=== PATIENT | male | born 1950 | race Caucasian/White ===

== ENCOUNTER 2017-08-29 16:25 | Inpatient (IN) ==
[2017-08-29 17:26] LABS: Basophils % 0.3 % (0.0-0.8); Eosinophils # 0.1 10*3/uL (0.0-0.87); Eosinophils % 1.3 % (0.00-10.9); Hematocrit 44.3 VOL% (42.0-52.0); Hemoglobin 15.6 GM/DL (14.0-18.0); Immature Granulocytes % 0.3 %; Immature Granulocytes Absolute 0.03 #; Lymphocytes # 2.4 10*3/uL (1.4-4.0); Mean Corpuscular HGB Conc 35.2 GM/DL (32-36); Mean Corpuscular Hemoglobin 32 PG (27-34); Mean Corpuscular Volume 91.3 FL (87-102); Mean Platelet Volume 10.4 FL (9.6-12.0); Monocytes # 0.9 10*3/uL (0.11-0.8); Monocytes % 8.5 % (1.7-12.7); Neutrophils # 7.5 10*3/uL (1.4-7.4); Neutrophils % 67.6 % (38.7-73.9); Platelet Count 228 T/CUMM (130-400); Red Blood Count 4.85 MC/CUMM (3.8-5.5); Red Cell Distribution Width 12.4 % (9.3-17.3); White Blood Count 11.1 T/CUMM (4-12)
[2017-08-29 17:37] LABS: INR 1.1; PT Patient Result 11.1 SECS
[2017-08-29 18:00] LABS: Partial Thromboplastin Time < 21.0 SECS (0-40)
[2017-08-29] MEDS ORDERED: MORPHINE 4 MG/1 ML VIAL IV PRN (18:34)
[2017-08-29] MEDS ORDERED: ONDANSETRON 4 MG/2 ML VIAL IV PRN (18:34)
[2017-08-29] MEDS ORDERED: ACETAMINOPHEN 325 MG TABLET PO PRN (18:34)
[2017-08-29] MEDS: PIPERACILLIN/TAZOBACTAM 3,375 MG in SODIUM CHLORIDE 0.9% 100 ML IV SCH (19:15)
[2017-08-29] MEDS: LACTATED RINGERS 1,000 ML IV SCH (19:15)
[2017-08-29 19:31] LABS: Albumin 3.7 G/DL (3.4-5.0); Calcium 8.3 MG/DL (8.5-10.1); Osmolality,Calculated 276.5 MOS/KG (273-304); Potassium 3.6 MMOL/L (3.5-5.1); Total Protein 6.6 G/DL (6.4-8.3)
[2017-08-30] MEDS: PIPERACILLIN/TAZOBACTAM 3,375 MG in SODIUM CHLORIDE 0.9% 100 ML IV SCH ×3 (02:43→17:20)
[2017-08-30] MEDS: LACTATED RINGERS 1,000 ML IV SCH ×3 (02:45→17:20)
[2017-08-30 07:36] LABS: Basophils % 0.3 % (0.0-0.8); Eosinophils # 0.2 10*3/uL (0.0-0.87); Eosinophils % 2.6 % (0.00-10.9); Hematocrit 41.1 VOL% (42.0-52.0); Hemoglobin 14.7 GM/DL (14.0-18.0); Immature Granulocytes % 0.4 %; Immature Granulocytes Absolute 0.03 #; Lymphocytes # 1.7 10*3/uL (1.4-4.0); Lymphocytes % 24.3 % (21.2-54.2); Mean Corpuscular HGB Conc 35.8 GM/DL (32-36); Mean Corpuscular Hemoglobin 33 PG (27-34); Mean Corpuscular Volume 90.9 FL (87-102); Mean Platelet Volume 10.1 FL (9.6-12.0); Monocytes # 0.5 10*3/uL (0.11-0.8); Monocytes % 7.7 % (1.7-12.7); Neutrophils # 4.6 10*3/uL (1.4-7.4); Neutrophils % 64.7 % (38.7-73.9); Platelet Count 203 T/CUMM (130-400); Red Blood Count 4.52 MC/CUMM (3.8-5.5); Red Cell Distribution Width 12.4 % (9.3-17.3)
[2017-08-30 08:02] LABS: Calcium 8.4 MG/DL (8.5-10.1); Osmolality,Calculated 281.3 MOS/KG (273-304); Potassium 3.8 MMOL/L (3.5-5.1)
[2017-08-30] MEDS: ENOXAPARIN 40 MG/0.4 ML SYRINGE SUBCUT SCH (09:25)
[2017-08-30] MEDS: PANTOPRAZOLE 40 MG TABLET PO SCH (09:25)
[2017-08-31] MEDS: PIPERACILLIN/TAZOBACTAM 3,375 MG in SODIUM CHLORIDE 0.9% 100 ML IV SCH ×3 (02:38→18:04)
[2017-08-31 04:11] LABS: Calcium 8.3 MG/DL (8.5-10.1); Osmolality,Calculated 279.3 MOS/KG (273-304); Potassium 3.2 MMOL/L (3.5-5.1)
[2017-08-31] MEDS: LACTATED RINGERS 1,000 ML IV SCH ×2 (07:02→09:49)
[2017-08-31] MEDS: ENOXAPARIN 40 MG/0.4 ML SYRINGE SUBCUT SCH (09:12)
[2017-08-31] MEDS: PANTOPRAZOLE 40 MG TABLET PO SCH (09:12)
[2017-08-31] MEDS: OLMESARTAN 20 MG TABLET PO SCH (12:01)
[2017-09-01] MEDS: PIPERACILLIN/TAZOBACTAM 3,375 MG in SODIUM CHLORIDE 0.9% 100 ML IV SCH ×3 (03:02→19:25)
[2017-09-01] MEDS: LACTATED RINGERS 1,000 ML IV SCH ×2 (03:04→21:40)
[2017-09-01] MEDS: PANTOPRAZOLE 40 MG TABLET PO SCH (09:19)
[2017-09-01] MEDS: ENOXAPARIN 40 MG/0.4 ML SYRINGE SUBCUT SCH (09:19)
[2017-09-01] MEDS: OLMESARTAN 20 MG TABLET PO SCH (09:19)
[2017-09-02] MEDS: PIPERACILLIN/TAZOBACTAM 3,375 MG in SODIUM CHLORIDE 0.9% 100 ML IV SCH ×2 (02:53→09:35)
[2017-09-02] MEDS ORDERED: BISACODYL 10 MG SUPP RECTAL ONE (07:42)
[2017-09-02] MEDS: OLMESARTAN 20 MG TABLET PO SCH (08:18)
[2017-09-02] MEDS: PANTOPRAZOLE 40 MG TABLET PO SCH (08:18)
[2017-09-02] MEDS: ENOXAPARIN 40 MG/0.4 ML SYRINGE SUBCUT SCH (08:18)
[2017-09-02 11:10] VITALS: BP 161/100
== END 2017-09-02 12:45 | disposition home or self-care (01) | DRG 390 ==
LOC: N.ED 16:25 → N.EDINP 17:22 → N.3E 18:15
PROVIDERS: ADMIT Surgery; ATTEND Surgery

== ENCOUNTER 2019-07-21 18:18 | Inpatient (IN) ==
[2019-07-21 19:09] LABS: Basophils % 0.2 % (0.0-0.8); Eosinophils % 0.3 % (0.00-10.9); Hematocrit 50.9 VOL% (42.0-52.0); Hemoglobin 17.5 GM/DL (14.0-18.0); Immature Granulocytes % 0.4 %; Immature Granulocytes Absolute 0.06 #; Lymphocytes # 2.1 10*3/uL (1.4-4.0); Lymphocytes % 14.2 % (21.2-54.2); Mean Corpuscular HGB Conc 34.4 GM/DL (32-36); Mean Corpuscular Volume 92.9 FL (87-102); Mean Platelet Volume 9.9 FL (9.6-12.0); Monocytes % 6.1 % (1.7-12.7); Neutrophils % 78.8 % (38.7-73.9); Platelet Count 283 T/CUMM (130-400); Red Blood Count 5.48 MC/CUMM (3.8-5.5); Red Cell Distribution Width 12.9 % (9.3-17.3); White Blood Count 14.5 T/CUMM (4-12)
[2019-07-21 19:25] LABS: Alanine Aminotransferase 32 U/L (16-61); Albumin 4.1 G/DL (3.4-5.0); Alkaline Phosphatase 90 U/L (45-117); Aspartate Amino Transferase 18 U/L (0-37); Blood Urea Nitrogen 18 MG/DL (7-18); Calcium 9.5 MG/DL (8.5-10.1); Estimated Glom Filtration Rate 62 ML/MIN; Glucose 149 MG/DL (74-106); Osmolality,Calculated 272.2 MOS/KG (273-304); Total Protein 8.3 G/DL (6.4-8.3); Troponin I < 0.015 NG/ML (0.00-0.045)
[2019-07-21] MEDS ORDERED: HYDROmorphone 2 MG/1 ML VIAL IV STA (20:00)
[2019-07-21] MEDS ORDERED: SODIUM CHLORIDE 0.9% 500 ML IV STA (20:00)
[2019-07-21] MEDS ORDERED: PANTOPRAZOLE 40 MG VIAL IV STA (20:00)
[2019-07-21] MEDS ORDERED: ONDANSETRON 4 MG/2 ML VIAL IV STA (20:00)
[2019-07-21 21:04] LABS: Apearance,Urine Slightly Hazy (Clear); Bacteria,Urine Occasional /HPF (Few); Bilirubin,Urine Negative (Negative); Blood, Urine Negative (Negative); Glucose,Urine (UA) Negative (Negative); Hyaline Casts,Urine 4 /LPF (0-3); Ketones,Urine Negative (Negative); Mucus,Urine Moderate /LPF (Occasional); Nitrite,Urine Negative (Negative); Protein,Urine 100 MG/DL; RBC,Urine 4 /HPF (0-4); Squamous Epithelial Cell,Urine Occasional /HPF (0-10); Urine Color Amber (Yellow); Urine Urobilinogen < 2.0 EU/DL (0.2-1.0); WBC,Urine 4 /HPF (0-6)
[2019-07-21] MEDS ORDERED: ACETAMINOPHEN 325 MG TABLET PO PRN (22:29)
[2019-07-21] MEDS: SODIUM CHLORIDE 0.9% 1,000 ML IV SCH (23:15)
[2019-07-22] MEDS: HYDROmorphone 2 MG/1 ML VIAL IV PRN ×4 (01:26→18:34)
[2019-07-22] MEDS: ONDANSETRON 4 MG/2 ML VIAL IV PRN (01:32)
[2019-07-22 05:44] LABS: Basophils % 0.1 % (0.0-0.8); Eosinophils % 0.1 % (0.00-10.9); Hematocrit 46.4 VOL% (42.0-52.0); Hemoglobin 16.2 GM/DL (14.0-18.0); Immature Granulocytes % 0.5 %; Immature Granulocytes Absolute 0.08 #; Lymphocytes # 1.7 10*3/uL (1.4-4.0); Lymphocytes % 11.9 % (21.2-54.2); Mean Corpuscular HGB Conc 34.9 GM/DL (32-36); Mean Corpuscular Volume 93.2 FL (87-102); Mean Platelet Volume 10.2 FL (9.6-12.0); Monocytes % 5.5 % (1.7-12.7); Neutrophils % 81.9 % (38.7-73.9); Platelet Count 238 T/CUMM (130-400); Red Blood Count 4.98 MC/CUMM (3.8-5.5); Red Cell Distribution Width 13.2 % (9.3-17.3); White Blood Count 14.6 T/CUMM (4-12)
[2019-07-22 06:19] LABS: Albumin 3.7 G/DL (3.4-5.0); Bilirubin,Total 0.9 MG/DL (0.2-1.0); Calcium 8.6 MG/DL (8.5-10.1); Osmolality,Calculated 282.4 MOS/KG (273-304); Total Protein 7.3 G/DL (6.4-8.3)
[2019-07-22] MEDS: PANTOPRAZOLE 40 MG VIAL IV SCH (08:05)
[2019-07-22] MEDS: SODIUM CHLORIDE 0.9% 1,000 ML IV SCH ×3 (08:05→21:47)
[2019-07-22] MEDS: OLMESARTAN 20 MG TABLET PO SCH (08:05)
[2019-07-22] MEDS ORDERED: cefOXitin 2,000 MG in SYRINGE 1 EACH IV ONE (09:29)
[2019-07-22] MEDS ORDERED: propofoL 200 MG/20 ML VIAL IV ONE (12:10)
[2019-07-22] MEDS ORDERED: ONDANSETRON 4 MG/2 ML VIAL ONE (12:11)
[2019-07-22] MEDS ORDERED: fentaNYL 100 MCG/2 ML VIAL ONE ×2 (12:11)
[2019-07-22] MEDS ORDERED: DEXAMETHASONE 4 MG/1 ML VIAL ONE (12:11)
[2019-07-22] MEDS ORDERED: SEVOFLURANE 1 UNIT/15 MINUTE INH ONE (12:11)
[2019-07-22] MEDS ORDERED: LIDOCAINE 2% 5 ML VIAL ONE (12:11)
[2019-07-22] MEDS ORDERED: SUCCINYLCHOLINE 200 MG/10 ML VIAL ONE (12:12)
[2019-07-22] MEDS ORDERED: PHENYLEPHRINE 1 MG/10 ML SYRINGE IV ONE (12:12)
[2019-07-22] MEDS ORDERED: ROCURONIUM 100 MG/10 ML VIAL IV ONE (12:12)
[2019-07-22 12:25] LABS: Amorphous Crystals,Urine Many /HPF (Few); Apearance,Urine CLOUDY (Clear); Bilirubin,Urine Negative (Negative); Blood, Urine Negative (Negative); Glucose,Urine (UA) Negative (Negative); Ketones,Urine Negative (Negative); Mucus,Urine Occasional /LPF (Occasional); Nitrite,Urine Negative (Negative); Protein,Urine Negative; Urine Color Yellow (Yellow); Urine Specific Gravity 1.042 (1.001-1.035); Urine Urobilinogen < 2.0 EU/DL (0.2-1.0)
[2019-07-22] MEDS ORDERED: KETOROLAC 15 MG/1 ML VIAL IV PRN (12:30)
[2019-07-22] MEDS ORDERED: HYDROmorphone 2 MG/1 ML VIAL IV PRN (12:30)
[2019-07-22] MEDS ORDERED: ALBUTEROL/IPRATROPIUM 3 ML NEB RESP TX PRN (12:30)
[2019-07-22] MEDS ORDERED: HYDROmorphone 2 MG/1 ML VIAL ONE (12:35)
[2019-07-22] MEDS: cefOXitin 2,000 MG in SYRINGE 1 EACH IV SCH ×2 (16:54→21:47)
[2019-07-23] MEDS: HYDROmorphone 2 MG/1 ML VIAL IV PRN ×3 (00:57→07:23)
[2019-07-23] MEDS: cefOXitin 2,000 MG in SYRINGE 1 EACH IV SCH (05:08)
[2019-07-23 05:17] LABS: Basophils % 0.2 % (0.0-0.8); Hematocrit 42.6 VOL% (42.0-52.0); Hemoglobin 14.3 GM/DL (14.0-18.0); Immature Granulocytes % 0.5 %; Immature Granulocytes Absolute 0.07 #; Lymphocytes # 1.6 10*3/uL (1.4-4.0); Lymphocytes % 12.3 % (21.2-54.2); Mean Corpuscular HGB Conc 33.6 GM/DL (32-36); Mean Corpuscular Volume 96.2 FL (87-102); Mean Platelet Volume 10.1 FL (9.6-12.0); Monocytes % 8.9 % (1.7-12.7); Neutrophils % 78.1 % (38.7-73.9); Platelet Count 207 T/CUMM (130-400); Red Blood Count 4.43 MC/CUMM (3.8-5.5); Red Cell Distribution Width 13.3 % (9.3-17.3)
[2019-07-23 05:56] LABS: Albumin 3.1 G/DL (3.4-5.0); Bilirubin,Total 0.8 MG/DL (0.2-1.0); Total Protein 6.3 G/DL (6.4-8.3)
[2019-07-23] MEDS: SODIUM CHLORIDE 0.9% 1,000 ML IV SCH ×2 (06:05→15:20)
[2019-07-23] MEDS ORDERED: SUGAMMADEX 200 MG/2 ML VIAL IV ONE (06:33)
[2019-07-23] MEDS: OLMESARTAN 20 MG TABLET PO SCH (09:39)
[2019-07-23] MEDS: PANTOPRAZOLE 40 MG VIAL IV SCH (09:39)
[2019-07-24] MEDS: SODIUM CHLORIDE 0.9% 1,000 ML IV SCH ×4 (01:48→12:01)
[2019-07-24] MEDS: PANTOPRAZOLE 40 MG VIAL IV SCH (08:49)
[2019-07-24] MEDS: OLMESARTAN 20 MG TABLET PO SCH (08:49)
[2019-07-24] MEDS: HYDROmorphone 2 MG/1 ML VIAL IV PRN (22:04)
[2019-07-25] MEDS: SODIUM CHLORIDE 0.9% 1,000 ML IV SCH ×3 (00:20→13:55)
[2019-07-25] MEDS ORDERED: hydrALAZINE 20 MG/1 ML VIAL IV ONE (07:18)
[2019-07-25] MEDS ORDERED: PROMETHAZINE 25 MG/1 ML VIAL IM ONE (07:48)
[2019-07-25] MEDS: PANTOPRAZOLE 40 MG VIAL IV SCH (09:44)
[2019-07-25] MEDS: OLMESARTAN 20 MG TABLET PO SCH (09:45)
[2019-07-25] MEDS ORDERED: hydrALAZINE 20 MG/1 ML VIAL IV PRN (09:53)
[2019-07-25] MEDS: ONDANSETRON 4 MG/2 ML VIAL IV PRN ×2 (12:30→20:50)
[2019-07-25] MEDS: ENALAPRIL 2.5 MG/2 ML VIAL IV SCH ×2 (12:35→18:10)
[2019-07-25] MEDS: hydrALAZINE 20 MG/1 ML VIAL IV PRN (15:56)
[2019-07-25] MEDS: HYDROmorphone 2 MG/1 ML VIAL IV PRN (20:47)
[2019-07-26] MEDS: ENALAPRIL 2.5 MG/2 ML VIAL IV SCH ×4 (00:01→17:46)
[2019-07-26 06:22] LABS: Basophils % 0.3 % (0.0-0.8); Eosinophils # 0.1 10*3/uL (0.0-0.87); Eosinophils % 1.2 % (0.00-10.9); Hematocrit 38.8 VOL% (42.0-52.0); Hemoglobin 13.7 GM/DL (14.0-18.0); Immature Granulocytes % 0.4 %; Immature Granulocytes Absolute 0.03 #; Lymphocytes # 1.5 10*3/uL (1.4-4.0); Lymphocytes % 19.7 % (21.2-54.2); Mean Corpuscular HGB Conc 35.3 GM/DL (32-36); Mean Corpuscular Volume 90.7 FL (87-102); Mean Platelet Volume 10.3 FL (9.6-12.0); Neutrophils % 71.4 % (38.7-73.9); Platelet Count 214 T/CUMM (130-400); Red Blood Count 4.28 MC/CUMM (3.8-5.5); Red Cell Distribution Width 12.5 % (9.3-17.3); White Blood Count 7.8 T/CUMM (4-12)
[2019-07-26] MEDS: SODIUM CHLORIDE 0.9% 1,000 ML IV SCH (06:45)
[2019-07-26] MEDS: ONDANSETRON 4 MG/2 ML VIAL IV PRN ×3 (06:45→17:43)
[2019-07-26 06:51] LABS: Risk Ratio 3.11; VLDL CHOLESTEROL 20.6 MG/DL
[2019-07-26 07:27] LABS: Calcium 8.5 MG/DL (8.5-10.1); Osmolality,Calculated 268.1 MOS/KG (273-304)
[2019-07-26] MEDS: HYDROmorphone 2 MG/1 ML VIAL IV PRN ×3 (07:27→17:51)
[2019-07-26] MEDS: PANTOPRAZOLE 40 MG VIAL IV SCH (08:47)
[2019-07-26] MEDS: POTASSIUM CHLORIDE RIDER 10 MEQ in PREMIX 1 EACH IV PRN ×5 (08:48→13:53)
[2019-07-26] MEDS: hydrALAZINE 20 MG/1 ML VIAL IV PRN (08:48)
[2019-07-26] MEDS: OLMESARTAN 20 MG TABLET PO SCH (09:41)
[2019-07-26] MEDS: POTASSIUM CHLORIDE INJ 30 MEQ in DEXTROSE 5% NACL 0.9% 1,000 ML IV SCH (11:19)
[2019-07-27] MEDS: ENALAPRIL 2.5 MG/2 ML VIAL IV SCH ×4 (01:13→21:09)
[2019-07-27] MEDS: POTASSIUM CHLORIDE INJ 30 MEQ in DEXTROSE 5% NACL 0.9% 1,000 ML IV SCH ×2 (03:17→21:09)
[2019-07-27 07:30] LABS: Calcium 8.2 MG/DL (8.5-10.1); Osmolality,Calculated 274.7 MOS/KG (273-304)
[2019-07-27] MEDS: OLMESARTAN 20 MG TABLET PO SCH (10:36)
[2019-07-27] MEDS ORDERED: POTASSIUM CHLORIDE RIDER 10 MEQ in PREMIX 1 EACH IV ONE (12:00)
[2019-07-27] MEDS: PANTOPRAZOLE 40 MG VIAL IV SCH (15:12)
[2019-07-27] MEDS: METOCLOPRAMIDE 10 MG/2 ML VIAL IV SCH ×2 (15:15→21:10)
[2019-07-28] MEDS: ENALAPRIL 2.5 MG/2 ML VIAL IV SCH ×4 (04:13→21:46)
[2019-07-28] MEDS: METOCLOPRAMIDE 10 MG/2 ML VIAL IV SCH ×4 (04:13→21:46)
[2019-07-28] MEDS: POTASSIUM CHLORIDE INJ 30 MEQ in DEXTROSE 5% NACL 0.9% 1,000 ML IV SCH ×5 (05:02→22:50)
[2019-07-28 06:25] LABS: Basophils % 0.5 % (0.0-0.8); Eosinophils # 0.2 10*3/uL (0.0-0.87); Eosinophils % 3.6 % (0.00-10.9); Hemoglobin 12.8 GM/DL (14.0-18.0); Immature Granulocytes % 0.3 %; Immature Granulocytes Absolute 0.02 #; Lymphocytes # 1.4 10*3/uL (1.4-4.0); Lymphocytes % 22.3 % (21.2-54.2); Mean Corpuscular HGB Conc 34.6 GM/DL (32-36); Mean Corpuscular Volume 92.3 FL (87-102); Mean Platelet Volume 9.8 FL (9.6-12.0); Monocytes % 9.3 % (1.7-12.7); Platelet Count 201 T/CUMM (130-400); Red Blood Count 4.01 MC/CUMM (3.8-5.5); Red Cell Distribution Width 12.4 % (9.3-17.3); White Blood Count 6.2 T/CUMM (4-12)
[2019-07-28 06:31] LABS: Calcium 8.2 MG/DL (8.5-10.1); Osmolality,Calculated 278.4 MOS/KG (273-304)
[2019-07-28] MEDS: PANTOPRAZOLE 40 MG VIAL IV SCH (09:17)
[2019-07-28] MEDS: OLMESARTAN 20 MG TABLET PO SCH (09:18)
[2019-07-28] MEDS: POTASSIUM CHLORIDE RIDER 10 MEQ in PREMIX 1 EACH IV PRN ×3 (09:18→12:43)
[2019-07-29] MEDS: hydrALAZINE 20 MG/1 ML VIAL IV PRN (01:12)
[2019-07-29] MEDS: ENALAPRIL 2.5 MG/2 ML VIAL IV SCH ×4 (03:28→20:26)
[2019-07-29] MEDS: METOCLOPRAMIDE 10 MG/2 ML VIAL IV SCH ×4 (03:28→20:26)
[2019-07-29 05:39] LABS: Calcium 8.4 MG/DL (8.5-10.1); Osmolality,Calculated 276.5 MOS/KG (273-304)
[2019-07-29 06:51] LABS: Basophils # 0.1 10*3/uL (0.0-0.2); Basophils % 0.4 % (0.0-0.8); Eosinophils # 0.2 10*3/uL (0.0-0.87); Eosinophils % 1.9 % (0.00-10.9); Hematocrit 42.5 VOL% (42.0-52.0); Immature Granulocytes % 0.4 %; Immature Granulocytes Absolute 0.05 #; Lymphocytes # 1.7 10*3/uL (1.4-4.0); Lymphocytes % 14.6 % (21.2-54.2); Mean Corpuscular HGB Conc 35.1 GM/DL (32-36); Mean Corpuscular Volume 91.6 FL (87-102); Mean Platelet Volume 9.8 FL (9.6-12.0); Monocytes % 7.3 % (1.7-12.7); Neutrophils % 75.4 % (38.7-73.9); Red Blood Count 4.64 MC/CUMM (3.8-5.5); Red Cell Distribution Width 12.9 % (9.3-17.3)
[2019-07-29 06:52] LABS: Hemoglobin 14.9 GM/DL (14.0-18.0); Platelet Count 268 T/CUMM (130-400); White Blood Count 11.9 T/CUMM (4-12)
[2019-07-29] MEDS: POTASSIUM CHLORIDE INJ 30 MEQ in DEXTROSE 5% NACL 0.9% 1,000 ML IV SCH ×2 (08:10→20:35)
[2019-07-29] MEDS: OLMESARTAN 20 MG TABLET PO SCH (09:41)
[2019-07-29] MEDS: PANTOPRAZOLE 40 MG VIAL IV SCH (12:23)
[2019-07-29] MEDS: hydroCHLOROthiazide 25 MG TABLET PO SCH (12:30)
[2019-07-29] MEDS: diphenhydrAMINE CAP 50 MG CAPSULE PO PRN (20:35)
[2019-07-30] MEDS: ENALAPRIL 2.5 MG/2 ML VIAL IV SCH ×4 (03:53→21:01)
[2019-07-30] MEDS: METOCLOPRAMIDE 10 MG/2 ML VIAL IV SCH ×4 (03:53→20:59)
[2019-07-30] MEDS: OLMESARTAN 20 MG TABLET PO SCH (09:48)
[2019-07-30] MEDS: hydroCHLOROthiazide 25 MG TABLET PO SCH (09:48)
[2019-07-30] MEDS: PANTOPRAZOLE 40 MG VIAL IV SCH (10:01)
[2019-07-30] MEDS: POTASSIUM CHLORIDE INJ 30 MEQ in DEXTROSE 5% NACL 0.9% 1,000 ML IV SCH (10:02)
[2019-07-30 10:23] LABS: Basophils % 0.4 % (0.0-0.8); Eosinophils # 0.4 10*3/uL (0.0-0.87); Hematocrit 43.2 VOL% (42.0-52.0); Hemoglobin 14.3 GM/DL (14.0-18.0); Immature Granulocytes % 0.2 %; Immature Granulocytes Absolute 0.02 #; Lymphocytes # 1.8 10*3/uL (1.4-4.0); Lymphocytes % 19.7 % (21.2-54.2); Mean Corpuscular HGB Conc 33.1 GM/DL (32-36); Mean Platelet Volume 9.9 FL (9.6-12.0); Neutrophils % 66.7 % (38.7-73.9); Platelet Count 255 T/CUMM (130-400); Red Cell Distribution Width 12.8 % (9.3-17.3)
[2019-07-30 10:36] LABS: Calcium 8.9 MG/DL (8.5-10.1); Osmolality,Calculated 274.5 MOS/KG (273-304)
[2019-07-30] MEDS: hydrALAZINE 20 MG/1 ML VIAL IV PRN (17:39)
[2019-07-30] MEDS: diphenhydrAMINE CAP 50 MG CAPSULE PO PRN (20:58)
[2019-07-31] MEDS: METOCLOPRAMIDE 10 MG/2 ML VIAL IV SCH ×2 (03:00→08:16)
[2019-07-31] MEDS: hydrALAZINE 20 MG/1 ML VIAL IV PRN (03:02)
[2019-07-31] MEDS: POTASSIUM CHLORIDE INJ 30 MEQ in DEXTROSE 5% NACL 0.9% 1,000 ML IV SCH (03:05)
[2019-07-31] MEDS: ENALAPRIL 2.5 MG/2 ML VIAL IV SCH ×2 (06:39→08:11)
[2019-07-31] MEDS: OLMESARTAN 20 MG TABLET PO SCH (08:10)
[2019-07-31] MEDS: hydroCHLOROthiazide 25 MG TABLET PO SCH (08:10)
[2019-07-31] MEDS: PANTOPRAZOLE 40 MG VIAL IV SCH (08:13)
[2019-07-31 11:19] VITALS: BP 149/91
== END 2019-07-31 13:10 | disposition home or self-care (01) | DRG 336 ==
LOC: N.EDINP 18:18 → N.ED 18:18 → N.3E 21:52
PROVIDERS: ADMIT Surgery; ATTEND Surgery

== ENCOUNTER 2022-04-21 10:00 | Inpatient (IN) ==
[2022-04-21 12:37] LABS: Basophils % 0.4 % (0.0-0.8); Eosinophils # 0.2 10*3/uL (0.0-0.87); Eosinophils % 1.6 % (0.00-10.9); Hematocrit 41.5 VOL% (42.0-52.0); Hemoglobin 14.1 GM/DL (14.0-18.0); Immature Granulocytes % 0.4 %; Immature Granulocytes Absolute 0.04 #; Lymphocytes # 1.9 10*3/uL (1.4-4.0); Lymphocytes % 19.8 % (21.2-54.2); Mean Corpuscular Volume 94.3 FL (87-102); Mean Platelet Volume 9.7 FL (9.6-12.0); Monocytes # 0.8 10*3/uL (0.11-0.8); Monocytes % 8.5 % (1.7-12.7); Neutrophils % 69.3 % (38.7-73.9); Platelet Count 313 T/CUMM (130-400); Red Cell Distribution Width 12.4 % (9.3-17.3); White Blood Count 9.5 T/CUMM (4-12)
[2022-04-21 12:45] LABS: Albumin 3.3 G/DL (3.4-5.0); Bilirubin,Total 0.5 MG/DL (0.20-1.00); Calcium 8.4 MG/DL (8.5-10.1); Osmolality,Calculated 271.2 MOS/KG (273-304); Potassium 3.7 MMOL/L (3.5-5.1); Total Protein 6.8 G/DL (6.4-8.2)
[2022-04-21] MEDS ORDERED: PROMETHAZINE 25 MG/1 ML VIAL IM PRN (14:55)
[2022-04-21] MEDS ORDERED: ACETAMINOPHEN 325 MG TABLET PO PRN (14:55)
[2022-04-21] MEDS ORDERED: KETOROLAC 15 MG/1 ML VIAL IV PRN (14:55)
[2022-04-21] MEDS ORDERED: HYDROmorphone 1 MG/1 ML SYRINGE IV PRN (14:55)
[2022-04-21] MEDS ORDERED: ONDANSETRON 4 MG/2 ML VIAL IV PRN (14:55)
[2022-04-21] MEDS: LACTATED RINGERS 1,000 ML IV SCH ×2 (15:17→23:12)
[2022-04-22 04:38] LABS: Basophils % 0.4 % (0.0-0.8); Eosinophils # 0.1 10*3/uL (0.0-0.87); Eosinophils % 1.6 % (0.00-10.9); Hemoglobin 13.5 GM/DL (14.0-18.0); Immature Granulocytes % 0.6 %; Immature Granulocytes Absolute 0.05 #; Lymphocytes # 2.2 10*3/uL (1.4-4.0); Lymphocytes % 25.7 % (21.2-54.2); Mean Corpuscular HGB Conc 35.5 GM/DL (32-36); Mean Corpuscular Volume 92.9 FL (87-102); Mean Platelet Volume 9.9 FL (9.6-12.0); Monocytes # 0.7 10*3/uL (0.11-0.8); Monocytes % 7.9 % (1.7-12.7); Neutrophils % 63.8 % (38.7-73.9); Platelet Count 300 T/CUMM (130-400); Red Blood Count 4.09 MC/CUMM (3.8-5.5); Red Cell Distribution Width 12.3 % (9.3-17.3); White Blood Count 8.4 T/CUMM (4-12)
[2022-04-22 04:52] LABS: Calcium 8.7 MG/DL (8.5-10.1); Osmolality,Calculated 283.3 MOS/KG (273-304); Potassium 3.1 MMOL/L (3.5-5.1)
[2022-04-22] MEDS: LACTATED RINGERS 1,000 ML IV SCH ×3 (07:13→23:27)
[2022-04-22] MEDS: amLODIPine 5 MG TABLET PO SCH (08:48)
[2022-04-22] MEDS: ENOXAPARIN 40 MG/0.4 ML SYRINGE SUBCUT SCH (08:48)
[2022-04-22] MEDS: PANTOPRAZOLE 40 MG TABLET PO SCH (08:48)
[2022-04-22] MEDS: DICLOFENAC SODIUM 50 MG TABLET PO SCH (08:52)
[2022-04-22] MEDS ORDERED: PANTOPRAZOLE 40 MG TABLET PO SCH (09:00)
[2022-04-22] MEDS ORDERED: POTASSIUM CHLORIDE RIDER 10 MEQ/100 ML PREMIX IV PRN (10:12)
[2022-04-22] MEDS: POTASSIUM CHLORIDE 20 MEQ TABLET PO PRN ×4 (14:08→21:30)
[2022-04-23] MEDS: LACTATED RINGERS 1,000 ML IV SCH (07:15)
[2022-04-23 07:53] VITALS: BP 130/72
[2022-04-23] MEDS: DICLOFENAC SODIUM 50 MG TABLET PO SCH (08:29)
[2022-04-23] MEDS: PANTOPRAZOLE 40 MG TABLET PO SCH (08:29)
[2022-04-23] MEDS: amLODIPine 5 MG TABLET PO SCH (08:29)
[2022-04-23] MEDS: ENOXAPARIN 40 MG/0.4 ML SYRINGE SUBCUT SCH (08:30)
== END 2022-04-23 11:49 | disposition home or self-care (01) | DRG 390 ==
LOC: N.CT 10:00 → N.3E 13:55
PROVIDERS: ADMIT Surgery; ATTEND Surgery